=== PATIENT | female | born 1975 | race Caucasian/White ===

== ENCOUNTER 2019-08-17 08:39 | Observation (INO) ==
[2019-08-17] MEDS ORDERED: 0.9 % Sodium Chloride 1,000 ML IVC ONE (09:33)
[2019-08-17] MEDS ORDERED: Ondansetron 4 MG/2 ML VIAL IVP ONE (09:33)
[2019-08-17] MEDS ORDERED: Morphine Sulfate 2 MG/ML SYRINGE IVP ONE (09:34)
[2019-08-17 10:21] LABS: Basophils % 0.3 %; Hematocrit 39.8 % (35.3-44.9); Hemoglobin 13.6 g/dL (11.5-15.4); Immature Granulocytes % 0.4 % (0-4); Lymphocytes # 0.8 K/mcL (0.6-4.6); Lymphocytes % 5.8 %; Mean Corpuscular HGB Conc 34.2 g/dL (31.6-35.5); Mean Corpuscular Hemoglobin 30.9 pg (28.0-33.3); Mean Corpuscular Volume 90.5 fL (83.0-100.0); Mean Platelet Volume 9.2 fL (9.4-12.4); Monocytes # 0.4 K/mcL (0.0-1.3); Monocytes % 3.1 %; Neutrophils # 11.9 K/mcL (1.6-8.9); Platelet Count 268 K/mcL (140-400); Red Cell Distribution Width 13.2 % (11.5-14.5); Segmented Neutrophils % 90.4 %; White Blood Count 13.2 K/mcL (4.3-11.1)
[2019-08-17 10:43] LABS: Alanine Aminotransferase 10 Units/L (7-52); Albumin 4.2 g/dL (3.5-5.7); Albumin/Globulin Ratio 1.4 (1.1-2.2); Alkaline Phosphatase 67 Units/L (34-104); Aspartate Amino Transferase 10 Units/L (13-39); BUN/Creatinine Ratio 12 (6-26); Bilirubin,Total 0.5 mg/dL (0.3-1.0); Blood Urea Nitrogen 10 mg/dL (6-20); Calcium 9.3 mg/dL (8.6-10.3); Carbon Dioxide 22 mEq/L (23-29); Chloride 108 mEq/L (98-107); Glucose 129 mg/dL (70-105); Lipase 5 Units/L (11-82); Osmolality,Calculated 293 (280-300); Potassium 3.5 mEq/L (3.5-5.1); Sodium 141 mEq/L (136-145); Total Protein 7.2 g/dL (6.4-8.9); eGFR For African Americans > 60 (> 60); eGFR For Non-African Americans > 60 (> 60)
[2019-08-17] MEDS ORDERED: Isovue-370 500 ML BOTTLE IVP ONE (11:11)
[2019-08-17 11:16] LABS: Bilirubin,Urine Negative (Negative); Blood,Urine Large (Negative); Clarity,Urine Cloudy (Clear); Color,Urine Yellow (Yellow); Glucose,Urine (UA) Normal (Normal); Ketones,Urine Negative (Negative); Leukocyte Esterase,Urine Moderate (Negative); Nitrite,Urine Negative (Negative); Protein,Urine Trace mg/dL (Neg-Trace); Urobilinogen,Urine Normal (Normal)
[2019-08-17 11:19] LABS: Bacteria,Urine Moderate per hpf (None-Few); Hyaline Casts,Urine None Seen per lpf (None-Few); RBC,Urine 50-100 per hpf (0-3); Squamous Epithelial Cell,Urine Many per lpf (None-Few); WBC,Urine 30-50 per hpf (0-3)
[2019-08-17] MEDS ORDERED: *HR* HYDROmorphone (PF) 1 MG/ML SYRINGE IVP ONE (12:52)
[2019-08-17] MEDS ORDERED: Piperacillin/Tazobactam 3.375 GM in 0.9 % Sodium Chloride Mini Bag 100 ML IVPB ONE (12:53)
[2019-08-17 13:18] LABS: Bilirubin,Urine Negative (Negative); Blood,Urine Moderate (Negative); Clarity,Urine Clear (Clear); Color,Urine Yellow (Yellow); Glucose,Urine (UA) Normal (Normal); Ketones,Urine Negative (Negative); Leukocyte Esterase,Urine Negative (Negative); Nitrite,Urine Negative (Negative); Protein,Urine Negative (Neg-Trace); Specific Gravity,Urine 1.029 (1.010-1.025); Urobilinogen,Urine Normal (Normal)
[2019-08-17 13:20] LABS: Bacteria,Urine None Seen per hpf (None-Few); Hyaline Casts,Urine None Seen per lpf (None-Few); RBC,Urine 15-30 per hpf (0-3); Squamous Epithelial Cell,Urine Many per lpf (None-Few)
[2019-08-17] MEDS ORDERED: 0.9 % Sodium Chloride 1,000 ML IVC SCH ×2 (14:06→21:30)
[2019-08-17] MEDS ORDERED: *HR* Metoprolol 5 MG/5 ML VIAL IVP PRN ×2 (14:06→21:30)
[2019-08-17] MEDS ORDERED: *HR* HYDROcodone/Acet 5/325 mg TABLET PO PRN (14:06)
[2019-08-17] MEDS ORDERED: Ketorolac 30 MG/ML VIAL IVP PRN ×2 (14:06→21:30)
[2019-08-17] MEDS ORDERED: Acetaminophen 325 MG TABLET PO PRN ×2 (15:42→21:30)
[2019-08-17] MEDS ORDERED: CefOXitin 1,000 MG VIAL ONE (16:47)
[2019-08-17] MEDS ORDERED: Ondansetron 4 MG/2 ML VIAL ONE (18:11)
[2019-08-17] MEDS ORDERED: Lidocaine -MPF 1% 5 ML AMPUL ONE (18:11)
[2019-08-17] MEDS ORDERED: Dexamethasone 4 MG/ML VIAL ONE (18:11)
[2019-08-17] MEDS ORDERED: *HR* Rocuronium Bromide 50 MG/5 ML VIAL ONE (18:11)
[2019-08-17] MEDS ORDERED: *HR* Propofol 200 MG/20 ML VIAL IVP ONE (18:11)
[2019-08-17] MEDS ORDERED: *HR* Midazolam HCl 2 MG/2 ML VIAL ONE ×2 (18:11→20:06)
[2019-08-17] MEDS ORDERED: *HR* FentaNYL (PF) 100 MCG/2 ML VIAL ONE ×2 (18:11→20:09)
[2019-08-17] MEDS ORDERED: Acetaminophen IV 1,000 MG/100 ML INFUS..BTL ONE (18:24)
[2019-08-17] MEDS ORDERED: Famotidine 20 MG/2 ML VIAL ONE (18:48)
[2019-08-17] MEDS ORDERED: CefOXitin 2,000 MG VIAL ONE (19:48)
[2019-08-17] MEDS ORDERED: *HR* Phenylephrine 10 MG/ML VIAL ONE (19:48)
[2019-08-17] MEDS ORDERED: Piperacillin/Tazobactam 3.375 GM in 0.9 % Sodium Chloride Mini Bag 100 ML IVPB SCH (21:00)
[2019-08-17] MEDS ORDERED: Topiramate 100 MG TABLET PO SCH (21:30)
[2019-08-17] MEDS ORDERED: tiZANidine 4 MG TABLET PO PRN (21:30)
[2019-08-17] MEDS ORDERED: (Diclofenac Sodium 1 APPLIC) TP PRN (21:30)
[2019-08-17] MEDS: Morphine Sulfate 2 MG/ML SYRINGE IVP PRN (22:31)
[2019-08-17] MEDS: Gabapentin 300 MG CAPSULE PO SCH (22:50)
[2019-08-18] MEDS: Piperacillin/Tazobactam 3.375 GM in 0.9 % Sodium Chloride Mini Bag 100 ML IVPB SCH ×2 (05:45→14:04)
[2019-08-18] MEDS: Morphine Sulfate 2 MG/ML SYRINGE IVP PRN (06:05)
[2019-08-18] MEDS ORDERED: Levothyroxine 25 MCG TABLET PO SCH (06:30)
[2019-08-18] MEDS ORDERED: clonazePAM 0.5 MG TABLET PO SCH ×2 (09:00→18:00)
[2019-08-18] MEDS ORDERED: Ketorolac 30 MG/ML VIAL IVP ONE (09:07)
[2019-08-18] MEDS ORDERED: Acetaminophen IV 500 MG/50 ML INFUS..BTL IVPB ONE (09:07)
[2019-08-18] MEDS: *HR* HYDROcodone/Acet 5/325 mg TABLET PO PRN ×2 (09:37→14:04)
[2019-08-18] MEDS: Gabapentin 300 MG CAPSULE PO SCH ×2 (09:40→14:04)
[2019-08-18 10:55] VITALS: BP 83/50
== END 2019-08-18 15:20 | disposition home or self-care (01) ==
LOC: EMEROOARM 08:39 → CDU 13:38
PROVIDERS: ADMIT Surgery; ATTEND Surgery

== ENCOUNTER 2019-11-09 11:27 | Observation (INO) ==
[2019-11-09] MEDS ORDERED: Aspirin 325 MG TABLET PO ONE (11:40)
[2019-11-09] MEDS: Nitroglycerin 0.4 MG TAB.SUBL SL PRN ×2 (11:51→11:59)
[2019-11-09 11:57] LABS: Hemoglobin 12.5 g/dL (11.5-15.4); Mean Corpuscular HGB Conc 32.9 g/dL (31.6-35.5); Mean Corpuscular Volume 91.3 fL (83.0-100.0); Mean Platelet Volume 9.5 fL (9.4-12.4); Platelet Count 268 K/mcL (140-400); Red Blood Count 4.16 M/mcL (3.82-4.97); Red Cell Distribution Width 13.2 % (11.5-14.5); White Blood Count 6.3 K/mcL (4.3-11.1)
[2019-11-09 12:07] LABS: Prothrombin Time 10.9 Seconds (9.4-12.1)
[2019-11-09 12:18] LABS: BUN/Creatinine Ratio 10 (6-26); Blood Urea Nitrogen 8 mg/dL (6-20); Calcium 9.3 mg/dL (8.6-10.3); Carbon Dioxide 22 mEq/L (23-29); Chloride 109 mEq/L (98-107); Glucose 116 mg/dL (70-105); Osmolality,Calculated 289 (280-300); Potassium 3.6 mEq/L (3.5-5.1); Sodium 140 mEq/L (136-145); eGFR For African Americans > 60 (> 60); eGFR For Non-African Americans > 60 (> 60)
[2019-11-09 12:19] LABS: Troponin I < 0.03 ng/mL (< 0.04)
[2019-11-09 12:21] LABS: Eosinophils # 0.4 K/mcL (0.0-0.6); Lymphocytes # 2.1 K/mcL (0.6-4.6); Monocytes # 0.1 K/mcL (0.0-1.3); Neutrophils # 3.7 K/mcL (1.6-8.9); Platelet Estimate Normal (Normal); Reactive Lymphocytes Present (Not Present)
[2019-11-09] MEDS ORDERED: Acetaminophen 325 MG TABLET PO ONE (13:13)
[2019-11-09] MEDS: Gabapentin 300 MG CAPSULE PO SCH ×2 (15:54→21:14)
[2019-11-09] MEDS: clonazePAM 0.5 MG TABLET PO SCH (16:55)
[2019-11-09] MEDS: tiZANidine 4 MG TABLET PO PRN (22:18)
[2019-11-09] MEDS: Topiramate 100 MG TABLET PO SCH (22:18)
[2019-11-09] MEDS: QUEtiapine Fumarate 25 MG TABLET PO SCH (22:18)
[2019-11-09] MEDS ORDERED: Ketorolac 15 MG/ML VIAL IVP ONE (22:20)
[2019-11-10 02:37] LABS: Prothrombin Time 11.1 Seconds (9.4-12.1)
[2019-11-10 02:44] LABS: Basophils # 0.1 K/mcL (0.0-0.2); Basophils % 1.1 %; Hematocrit 35.2 % (35.3-44.9); Hemoglobin 11.5 g/dL (11.5-15.4); Immature Granulocytes % 0.1 % (0-4); Lymphocytes # 3.4 K/mcL (0.6-4.6); Lymphocytes % 46.7 %; Mean Corpuscular HGB Conc 32.7 g/dL (31.6-35.5); Mean Corpuscular Hemoglobin 30.8 pg (28.0-33.3); Mean Corpuscular Volume 94.4 fL (83.0-100.0); Mean Platelet Volume 9.8 fL (9.4-12.4); Monocytes # 0.5 K/mcL (0.0-1.3); Monocytes % 6.7 %; Neutrophils # 3.3 K/mcL (1.6-8.9); Platelet Count 253 K/mcL (140-400); Red Blood Count 3.73 M/mcL (3.82-4.97); Red Cell Distribution Width 13.2 % (11.5-14.5); Segmented Neutrophils % 45.4 %; White Blood Count 7.3 K/mcL (4.3-11.1)
[2019-11-10 02:53] LABS: Alanine Aminotransferase 10 Units/L (7-52); Albumin 3.8 g/dL (3.5-5.7); Albumin/Globulin Ratio 1.4 (1.1-2.2); Alkaline Phosphatase 62 Units/L (34-104); Aspartate Amino Transferase 11 Units/L (13-39); BUN/Creatinine Ratio 12 (6-26); Bilirubin,Total 0.2 mg/dL (0.3-1.0); Blood Urea Nitrogen 12 mg/dL (6-20); Calcium 9.2 mg/dL (8.6-10.3); Carbon Dioxide 24 mEq/L (23-29); Chloride 110 mEq/L (98-107); Globulin 2.8 g/dL (2.4-3.5); Glucose 91 mg/dL (70-105); Magnesium 2.1 mg/dL (1.6-2.6); Osmolality,Calculated 295 (280-300); Sodium 143 mEq/L (136-145); Total Protein 6.6 g/dL (6.4-8.9); eGFR For African Americans > 60 (> 60); eGFR For Non-African Americans 58 (> 60)
[2019-11-10] MEDS: Levothyroxine 25 MCG TABLET PO SCH (05:37)
[2019-11-10] MEDS ORDERED: 0.9 % Sodium Chloride 1,000 ML ONE (07:25)
[2019-11-10] MEDS ORDERED: 0.9 % Sodium Chloride 500 ML IV ONE (07:36)
[2019-11-10] MEDS: Aspirin 81 MG TAB.CHEW PO SCH ×2 (10:32→11:17)
[2019-11-10] MEDS: Gabapentin 300 MG CAPSULE PO SCH ×4 (10:33→21:37)
[2019-11-10] MEDS: clonazePAM 0.5 MG TABLET PO SCH ×3 (10:33→21:13)
[2019-11-10] MEDS: Multivit/Ca/Min/Fe/FA 1 TAB TABLET PO SCH ×2 (10:34→11:18)
[2019-11-10] MEDS ORDERED: Loratadine 10 MG TABLET PO SCH (11:30)
[2019-11-10] MEDS ORDERED: Fluticasone Propionate Nasal 50 MCG/SPRAY BOTTLE NS SCH (11:30)
[2019-11-10] MEDS ORDERED: clonazePAM 0.5 MG TABLET PO SCH (11:30)
[2019-11-10] MEDS ORDERED: lamoTRIgine 25 MG TABLET PO SCH (12:30)
[2019-11-10] MEDS: Ipratropium Neb 0.5 MG NEBULIZER IH PRN (16:39)
[2019-11-10] MEDS: *HR* Heparin 5,000 UNIT/ML VIAL SQ SCH (17:33)
[2019-11-10] MEDS: QUEtiapine Fumarate 25 MG TABLET PO SCH (21:37)
[2019-11-10] MEDS: Topiramate 100 MG TABLET PO SCH (21:39)
[2019-11-10] MEDS: tiZANidine 4 MG TABLET PO PRN (21:49)
[2019-11-11 03:55] LABS: Chol/HDL Ratio 5.2 (0-4.9); Cholesterol 166 mg/dL (< 200); HDL Cholesterol 32 mg/dL (40-59); LDL Cholesterol,Calculated 81 mg/dL (0-99); Triglycerides 266 mg/dL (< 150)
[2019-11-11] MEDS: *HR* Heparin 5,000 UNIT/ML VIAL SQ SCH (05:44)
[2019-11-11] MEDS: Levothyroxine 25 MCG TABLET PO SCH (05:45)
[2019-11-11] MEDS ORDERED: Regadenoson 0.4 MG/5 ML SYRINGE IVP ONE (08:51)
[2019-11-11] MEDS: Ipratropium Neb 0.5 MG NEBULIZER IH PRN (10:46)
[2019-11-11 12:02] VITALS: BP 92/62
[2019-11-15] MEDS ORDERED: Cholecalciferol (D-3) 1,000 UNIT (25MCG) TABLET PO SCH (15:00)
== END 2019-11-11 14:07 | disposition home or self-care (01) ==
LOC: EMEROOARM 11:27 → 3BNU 11:27 → SUATTDRO 14:55
PROVIDERS: ADMIT Family Medicine; ATTEND Internal Medicine

== ENCOUNTER 2022-02-19 01:55 | Inpatient (IN) ==
[2022-02-19] MEDS ORDERED: 0.9 % Sodium Chloride 1,000 ML ONE ×2 (02:13→02:14)
[2022-02-19] MEDS ORDERED: Ketamine HCL *QUVA* 50mg (1mL) SYRINGE ONE (02:18)
[2022-02-19] MEDS ORDERED: *HR* Rocuronium Bromide 50 MG/5 ML VIAL IVP ONE (02:30)
[2022-02-19] MEDS ORDERED: Ketamine HCL *QUVA* 50mg (1mL) SYRINGE IV ONE (02:31)
[2022-02-19] MEDS ORDERED: 0.9 % Sodium Chloride 1,000 ML IVC ONE (02:42)
[2022-02-19 02:55] LABS: ABG Base Excess -6 mEq/L (-2 to 3); ABG HCO3 19 mEq/L (21-27); ABG Oxygen Saturation 100 % (95-98); ABG PCO2 34 mmHg (35-45); ABG PH 7.35 pH Units (7.32-7.45); ABG PO2 185 mmHg (85-104); ABG TCO2 20 mEq/L (20-26); Blood Gas Modality ASSIST CONTROL; Blood Gas VT 500 cc
[2022-02-19 03:08] LABS: Bilirubin,Urine Negative (Negative); Blood,Urine Negative (Negative); Clarity,Urine Clear (Clear); Color,Urine Colorless (Yellow); Glucose,Urine (UA) Normal (Normal); Ketones,Urine Negative (Negative); Leukocyte Esterase,Urine Negative (Negative); Nitrite,Urine Negative (Negative); PH,Urine 6.5 pH Units (5.0-8.0); Protein,Urine Negative (Neg-Trace); Specific Gravity,Urine < 1.005 (1.010-1.025); Urobilinogen,Urine Normal (Normal)
[2022-02-19 03:18] LABS: Amphetamine Screen,Urine Negative ng/mL (Cutoff=1000); Barbiturate Screen,Urine Negative ng/mL (Cutoff=200); Benzodiazepines Screen,Urine Negative ng/mL (Cutoff=200); Cannabinoid Screen,Urine Negative ng/mL (Cutoff = 50); Cocaine Screen,Urine Negative ng/mL (Cutoff= 300); Opiate Screen,Urine Negative ng/mL (Cutoff=300); Phencyclidine Screen,Urine Negative ng/mL (Cutoff=25)
[2022-02-19 03:43] LABS: Basophils # 0.1 K/mcL (0.0-0.2); Basophils % 1.3 %; Hematocrit 45.4 % (35.3-44.9); Hemoglobin 15.1 g/dL (11.5-15.4); Immature Granulocytes % 0.3 % (0-4); Lymphocytes # 2.8 K/mcL (0.6-4.6); Lymphocytes % 29.9 %; Mean Corpuscular HGB Conc 33.3 g/dL (31.6-35.5); Mean Corpuscular Hemoglobin 32.1 pg (28.0-33.3); Mean Corpuscular Volume 96.4 fL (83.0-100.0); Mean Platelet Volume 9.5 fL (9.4-12.4); Monocytes # 0.5 K/mcL (0.0-1.3); Neutrophils # 5.9 K/mcL (1.6-8.9); Platelet Count 258 K/mcL (140-400); Red Blood Count 4.71 M/mcL (3.82-4.97); Red Cell Distribution Width 13.6 % (11.5-14.5); Segmented Neutrophils % 63.5 %; White Blood Count 9.4 K/mcL (4.3-11.1)
[2022-02-19 03:52] LABS: Prothrombin Time 10.7 Seconds (9.4-12.1)
[2022-02-19 03:53] LABS: Acetaminophen < 10 mcg/mL (10-20); Alanine Aminotransferase 10 Units/L (7-52); Albumin 3.9 g/dL (3.5-5.7); Albumin/Globulin Ratio 1.3 (1.1-2.2); Alkaline Phosphatase 70 Units/L (34-104); Aspartate Amino Transferase 14 Units/L (13-39); BUN/Creatinine Ratio 9 (6-26); Bilirubin,Indirect 0.3 mg/dL (0.0-1.0); Bilirubin,Total 0.3 mg/dL (0.3-1.0); Blood Urea Nitrogen 6 mg/dL (6-20); Calcium 8.7 mg/dL (8.6-10.3); Carbon Dioxide 23 mEq/L (23-29); Chloride 106 mEq/L (98-107); Ethanol 168 mg/dL (Less than 10); Glucose 70 mg/dL (70-105); Osmolality,Calculated 284 (280-300); Potassium 3.4 mEq/L (3.5-5.1); Salicylate < 2.5 mg/dL (15.0-30.0); Sodium 139 mEq/L (136-145); Total Protein 6.9 g/dL (6.4-8.9); eGFR For African Americans > 60 (> 60); eGFR For Non-African Americans > 60 (> 60)
[2022-02-19 03:55] LABS: Activated Partial Thrombo Time 35.8 Seconds (26.0-36.0)
[2022-02-19] MEDS ORDERED: Naloxone 0.4 MG/ML INJ IVP PRN (04:13)
[2022-02-19] MEDS ORDERED: Ondansetron 4 MG/2 ML VIAL IVP PRN (04:16)
[2022-02-19] MEDS ORDERED: Dextrose Gel 15 GM/37.5 ML TUBE PO PRN ×2 (04:18)
[2022-02-19] MEDS ORDERED: D5% in Water 1,000 ML IVC PRN (04:18)
[2022-02-19] MEDS ORDERED: Saline Nasal Spray 44 ML BOTTLE NS PRN (04:22)
[2022-02-19 04:51] LABS: Basophils # 0.1 K/mcL (0.0-0.2); Basophils % 1.1 %; Hematocrit 41.6 % (35.3-44.9); Hemoglobin 13.6 g/dL (11.5-15.4); Immature Granulocytes % 0.2 % (0-4); Lymphocytes # 2.5 K/mcL (0.6-4.6); Lymphocytes % 31.3 %; Mean Corpuscular HGB Conc 32.7 g/dL (31.6-35.5); Mean Corpuscular Hemoglobin 31.6 pg (28.0-33.3); Mean Corpuscular Volume 96.5 fL (83.0-100.0); Mean Platelet Volume 9.3 fL (9.4-12.4); Monocytes # 0.5 K/mcL (0.0-1.3); Monocytes % 6.4 %; Neutrophils # 4.9 K/mcL (1.6-8.9); Platelet Count 228 K/mcL (140-400); Red Blood Count 4.31 M/mcL (3.82-4.97); Red Cell Distribution Width 13.7 % (11.5-14.5)
[2022-02-19 04:58] LABS: Prothrombin Time 11.1 Seconds (9.4-12.1)
[2022-02-19 05:00] LABS: Activated Partial Thrombo Time 36.5 Seconds (26.0-36.0)
[2022-02-19 05:11] LABS: Alanine Aminotransferase 8 Units/L (7-52); Albumin 3.4 g/dL (3.5-5.7); Albumin/Globulin Ratio 1.4 (1.1-2.2); Alkaline Phosphatase 59 Units/L (34-104); Aspartate Amino Transferase 12 Units/L (13-39); BUN/Creatinine Ratio 9 (6-26); Bilirubin,Total 0.2 mg/dL (0.3-1.0); Blood Urea Nitrogen 6 mg/dL (6-20); Calcium 7.6 mg/dL (8.6-10.3); Carbon Dioxide 21 mEq/L (23-29); Chloride 111 mEq/L (98-107); Creatine Kinase 21 Units/L (30-223); Globulin 2.5 g/dL (2.4-3.5); Glucose 76 mg/dL (70-105); Magnesium 1.9 mg/dL (1.6-2.6); Osmolality,Calculated 288 (280-300); Phosphorous 2.3 mg/dL (2.7-4.5); Potassium 3.3 mEq/L (3.5-5.1); Sodium 141 mEq/L (136-145); Total Protein 5.9 g/dL (6.4-8.9); eGFR For African Americans > 60 (> 60); eGFR For Non-African Americans > 60 (> 60)
[2022-02-19] MEDS ORDERED: Thiamine (B-1) 100 MG in 0.9 % Sodium Chloride 50 ML IVPB STA (05:27)
[2022-02-19] MEDS ORDERED: *HR* LORazepam 2 MG/ML VIAL IVP PRN ×3 (05:48)
[2022-02-19] MEDS ORDERED: 0.9 % Sodium Chloride 1,000 ML IVC SCH (06:00)
[2022-02-19] MEDS: Calcium Gluconate 1gm/50mL 1 GM/50 ML BAG IVPB SCH ×2 (06:03→06:22)
[2022-02-19] MEDS: *HR* Enoxaparin 40 MG/0.4 ML SYRINGE SQ SCH (06:05)
[2022-02-19 06:26] LABS: ABG Base Excess -7 mEq/L (-2 to 3); ABG HCO3 16 mEq/L (21-27); ABG Oxygen Saturation 98 % (95-98); ABG PCO2 27 mmHg (35-45); ABG PH 7.38 pH Units (7.32-7.45); ABG PO2 108 mmHg (85-104); ABG TCO2 17 mEq/L (20-26); Blood Gas VT 500 cc
[2022-02-19] MEDS: Pantoprazole 40 MG VIAL IVP SCH (07:43)
[2022-02-19] MEDS: Chlorhexidine Rinse 15 ML MOUTHWASH MM SCH ×2 (07:43→20:06)
[2022-02-19] MEDS: Artificial Tears SOLN 15 ML BOTTLE BOTH EYES SCH ×5 (07:43→23:10)
[2022-02-19] MEDS: *HR* Dextrose 50 % in Water (Syg) 50 ML SYRINGE IVP PRN ×3 (07:44→13:58)
[2022-02-19] MEDS ORDERED: Nicotine 14 MG PATCH.TD24 TD SCH (09:00)
[2022-02-19] MEDS ORDERED: Artificial Tears SOLN 15 ML BOTTLE BOTH EYES SCH (09:00)
[2022-02-19] MEDS: Budesonide/Formoterol 160/4.5 1 PUFF INH IH SCH ×2 (10:15→20:30)
[2022-02-19] MEDS: Ipratropium/Albuterol Neb 3 ML IH SCH ×3 (10:15→20:30)
[2022-02-19] MEDS ORDERED: D5% in 0.9% NACL 1,000 ML IVC SCH (11:45)
[2022-02-19] MEDS: D10% in Water 500 ML IVC SCH ×2 (15:01→20:00)
[2022-02-19 16:50] LABS: VBG Ionized Calcium 1.14 mmol/L (1.15-1.35)
[2022-02-19 17:11] LABS: BUN/Creatinine Ratio 9 (6-26); Blood Urea Nitrogen 6 mg/dL (6-20); Calcium 8.6 mg/dL (8.6-10.3); Carbon Dioxide 25 mEq/L (23-29); Chloride 110 mEq/L (98-107); Glucose 116 mg/dL (70-105); Magnesium 1.9 mg/dL (1.6-2.6); Osmolality,Calculated 291 (280-300); Phosphorous 3.3 mg/dL (2.7-4.5); Potassium 3.6 mEq/L (3.5-5.1); Sodium 141 mEq/L (136-145); eGFR For African Americans > 60 (> 60); eGFR For Non-African Americans > 60 (> 60)
[2022-02-19 17:32] LABS: Thyroid Stimulating Hormone 1.427 mcIU/mL (0.340-5.600)
[2022-02-19] MEDS ORDERED: Thiamine (B-1) 100 MG, Folic Acid 1 MG, MVI, adult with vitamin K 10 ML in 0.9 % Sodi... IVPB SCH (18:00)
[2022-02-19] MEDS ORDERED: Dexmedetomidine HCl 400 MCG/100 ML MLS IVC SCH (19:00)
[2022-02-20] MEDS: D10% in Water 500 ML IVC SCH ×2 (00:08→18:42)
[2022-02-20] MEDS: Ipratropium/Albuterol Neb 3 ML IH SCH ×3 (03:48→16:11)
[2022-02-20 04:01] LABS: ABG Base Excess -3 mEq/L (-2 to 3); ABG HCO3 20 mEq/L (21-27); ABG Oxygen Saturation 99 % (95-98); ABG PCO2 29 mmHg (35-45); ABG PH 7.45 pH Units (7.32-7.45); ABG PO2 119 mmHg (85-104); ABG TCO2 21 mEq/L (20-26); Blood Gas VT 500 cc
[2022-02-20] MEDS: Artificial Tears SOLN 15 ML BOTTLE BOTH EYES SCH ×3 (04:01→11:38)
[2022-02-20] MEDS: *HR* Enoxaparin 40 MG/0.4 ML SYRINGE SQ SCH (05:12)
[2022-02-20 06:49] LABS: VBG Ionized Calcium 1.11 mmol/L (1.15-1.35)
[2022-02-20 07:05] LABS: Basophils # 0.1 K/mcL (0.0-0.2); Basophils % 0.8 %; Eosinophils # 1.2 K/mcL (0.0-0.6); Eosinophils % 13.8 %; Hematocrit 36.7 % (35.3-44.9); Hemoglobin 11.6 g/dL (11.5-15.4); Immature Granulocytes % 0.2 % (0-4); Lymphocytes # 1.5 K/mcL (0.6-4.6); Lymphocytes % 17.8 %; Mean Corpuscular HGB Conc 31.6 g/dL (31.6-35.5); Mean Corpuscular Hemoglobin 32.2 pg (28.0-33.3); Mean Corpuscular Volume 101.9 fL (83.0-100.0); Mean Platelet Volume 9.8 fL (9.4-12.4); Monocytes # 0.7 K/mcL (0.0-1.3); Monocytes % 7.6 %; Neutrophils # 5.1 K/mcL (1.6-8.9); Platelet Count 209 K/mcL (140-400); Red Cell Distribution Width 14.3 % (11.5-14.5); Segmented Neutrophils % 59.8 %; White Blood Count 8.6 K/mcL (4.3-11.1)
[2022-02-20] MEDS: Chlorhexidine Rinse 15 ML MOUTHWASH MM SCH (07:38)
[2022-02-20] MEDS: Pantoprazole 40 MG VIAL IVP SCH (07:38)
[2022-02-20 09:33] LABS: BUN/Creatinine Ratio 9 (6-26); Blood Urea Nitrogen 6 mg/dL (6-20); Calcium 8.3 mg/dL (8.6-10.3); Carbon Dioxide 20 mEq/L (23-29); Chloride 113 mEq/L (98-107); Glucose 124 mg/dL (70-105); Osmolality,Calculated 287 (280-300); Phosphorous 3.9 mg/dL (2.7-4.5); Potassium 3.9 mEq/L (3.5-5.1); Sodium 139 mEq/L (136-145); eGFR For African Americans > 60 (> 60); eGFR For Non-African Americans > 60 (> 60)
[2022-02-20] MEDS: Budesonide/Formoterol 160/4.5 1 PUFF INH IH SCH ×2 (10:04→20:22)
[2022-02-20] MEDS: Nicotine 14 MG PATCH.TD24 TD SCH (11:40)
[2022-02-20] MEDS ORDERED: Methyl Salicylate/Menthol 85 APPL/85 GM TUBE TP PRN (16:09)
[2022-02-20] MEDS: Folic Acid 1 MG TABLET PO SCH (17:05)
[2022-02-20] MEDS: Acetaminophen 325 MG TABLET PO PRN (20:06)
[2022-02-20] MEDS: Topiramate 100 MG TABLET PO SCH (21:44)
[2022-02-20] MEDS: Topiramate 25 MG TABLET PO SCH (21:44)
[2022-02-20] MEDS ORDERED: Melatonin 3 MG TABLET PO PRN (23:10)
[2022-02-21] MEDS: Ipratropium Neb 0.5 MG NEBULIZER IH PRN ×3 (01:00→15:20)
[2022-02-21 01:30] LABS: VBG Ionized Calcium 0.97 mmol/L (1.15-1.35)
[2022-02-21 01:50] LABS: BUN/Creatinine Ratio 13 (6-26); Blood Urea Nitrogen 11 mg/dL (6-20); Calcium 8.7 mg/dL (8.6-10.3); Carbon Dioxide 20 mEq/L (23-29); Chloride 112 mEq/L (98-107); Glucose 132 mg/dL (70-105); Osmolality,Calculated 293 (280-300); Phosphorous 3.3 mg/dL (2.7-4.5); Potassium 3.3 mEq/L (3.5-5.1); Sodium 141 mEq/L (136-145); eGFR For African Americans > 60 (> 60); eGFR For Non-African Americans > 60 (> 60)
[2022-02-21] MEDS: Acetaminophen 325 MG TABLET PO PRN ×3 (03:14→20:36)
[2022-02-21] MEDS: *HR* Enoxaparin 40 MG/0.4 ML SYRINGE SQ SCH (05:12)
[2022-02-21] MEDS: Budesonide/Formoterol 160/4.5 1 PUFF INH IH SCH ×3 (07:28→20:38)
[2022-02-21] MEDS: Folic Acid 1 MG TABLET PO SCH (07:49)
[2022-02-21] MEDS: Thiamine (B-1) 100 MG TABLET PO SCH (07:49)
[2022-02-21] MEDS: Nicotine 14 MG PATCH.TD24 TD SCH (07:49)
[2022-02-21 11:48] LABS: Influenza A PCR Negative (Negative); Influenza B PCR Negative (Negative); Resp. Syncytial Virus PCR Negative (Negative)
[2022-02-21 11:49] LABS: SARS-CoV-2 by PCR (In House) Negative (Negative)
[2022-02-21] MEDS: Ipratropium/Albuterol Neb 3 ML IH SCH (20:33)
[2022-02-21] MEDS: Topiramate 100 MG TABLET PO SCH (20:36)
[2022-02-21] MEDS: Topiramate 25 MG TABLET PO SCH (20:36)
[2022-02-22] MEDS: Menthol 1 EACH LOZENGE PO PRN ×2 (00:46→03:53)
[2022-02-22 02:20] LABS: VBG Ionized Calcium 1.13 mmol/L (1.15-1.35)
[2022-02-22 02:35] LABS: BUN/Creatinine Ratio 17 (6-26); Blood Urea Nitrogen 14 mg/dL (6-20); Carbon Dioxide 22 mEq/L (23-29); Chloride 107 mEq/L (98-107); Glucose 98 mg/dL (70-105); Magnesium 1.9 mg/dL (1.6-2.6); Osmolality,Calculated 282 (280-300); Phosphorous 4.3 mg/dL (2.7-4.5); Sodium 136 mEq/L (136-145); eGFR For African Americans > 60 (> 60); eGFR For Non-African Americans > 60 (> 60)
[2022-02-22] MEDS: Ipratropium/Albuterol Neb 3 ML IH SCH ×2 (04:11→10:04)
[2022-02-22] MEDS: *HR* Enoxaparin 40 MG/0.4 ML SYRINGE SQ SCH (05:48)
[2022-02-22] MEDS: Nicotine 14 MG PATCH.TD24 TD SCH (09:07)
[2022-02-22] MEDS: Folic Acid 1 MG TABLET PO SCH (09:08)
[2022-02-22] MEDS: Thiamine (B-1) 100 MG TABLET PO SCH (09:08)
[2022-02-22] MEDS: Budesonide/Formoterol 160/4.5 1 PUFF INH IH SCH (10:01)
[2022-02-22 10:05] VITALS: O2SAT 95
[2022-02-22 11:57] VITALS: BP 93/57; PULSE 89; TEMP 98.9
== END 2022-02-22 12:46 | DRG 817 ==
LOC: ICNU 01:55 → EMEROOARM 01:55 → SUATTDRO 04:21 → ICNU 04:55 → 3BNU 02-20 18:41
PROVIDERS: ADMIT Internal Medicine; ATTEND Registered Nurse

== ENCOUNTER 2022-02-22 12:56 | Inpatient (IN) ==
[2022-02-22] MEDS ORDERED: *HR* LORazepam 2 MG/ML VIAL IM PRN (15:26)
[2022-02-22] MEDS ORDERED: Haloperidol Lactate 5 MG/ML VIAL IM PRN (15:26)
[2022-02-22] MEDS ORDERED: traZODone 50 MG TABLET PO PRN ×2 (15:26→15:30)
[2022-02-22] MEDS ORDERED: *HR* LORazepam 1 MG TABLET PO PRN (15:26)
[2022-02-22] MEDS ORDERED: haloperidoL 5 MG TABLET PO PRN (15:26)
[2022-02-22] MEDS: Ipratropium Neb 0.5 MG NEBULIZER IH PRN (18:02)
[2022-02-22] MEDS: Topiramate 100 MG TABLET PO SCH (20:28)
[2022-02-22] MEDS: QUEtiapine Fumarate 25 MG TABLET PO SCH (20:29)
[2022-02-22] MEDS: Acetaminophen 325 MG TABLET PO PRN (20:29)
[2022-02-22] MEDS: traZODone 50 MG TABLET PO SCH (20:30)
[2022-02-22] MEDS ORDERED: clonazePAM 0.5 MG TABLET PO ONE (21:00)
[2022-02-23] MEDS: Vitamin B Complex/Vit C/Vit E 1 EACH TABLET PO SCH (10:30)
[2022-02-23 18:00] LABS: Bacteria,Urine Few per hpf (None-Few); Bilirubin,Urine Negative (Negative); Blood,Urine Large (Negative); Budding Yeast,Urine Few per hpf (None Seen); Clarity,Urine Ex.Turbid (Clear); Color,Urine Dark-Yellow (Yellow); Glucose,Urine (UA) Normal (Normal); Ketones,Urine Negative (Negative); Leukocyte Esterase,Urine Large (Negative); Mucus,Urine Few per lpf (None-Few); Nitrite,Urine Negative (Negative); Protein,Urine 100 mg/dL (Neg-Trace); RBC,Urine TNTC per hpf (0-3); Renal Epithelial Cells,Urine Few per hpf (None-Few); Specific Gravity,Urine 1.019 (1.010-1.025); Squamous Epithelial Cell,Urine Moderate per hpf (None-Few); Transitional Epi Cells,Urine Few per hpf (None-Few); Urobilinogen,Urine Normal (Normal); WBC,Urine TNTC per hpf (0-3)
[2022-02-23] MEDS: Nitrofurantoin (BID) 100 MG CAPSULE PO SCH ×2 (21:38→23:25)
[2022-02-23] MEDS: Nicotine 14 MG PATCH.TD24 TD SCH (21:39)
[2022-02-23] MEDS: QUEtiapine Fumarate 25 MG TABLET PO SCH (21:40)
[2022-02-23] MEDS: traZODone 50 MG TABLET PO SCH (21:40)
[2022-02-23] MEDS: Topiramate 100 MG TABLET PO SCH (21:40)
[2022-02-23] MEDS: Acetaminophen 325 MG TABLET PO PRN (21:42)
[2022-02-23] MEDS: Ipratropium Neb 0.5 MG NEBULIZER IH PRN (21:44)
[2022-02-23 23:49] VITALS: O2SAT 97
[2022-02-24] MEDS: Vitamin B Complex/Vit C/Vit E 1 EACH TABLET PO SCH (09:06)
[2022-02-24] MEDS: Nicotine 14 MG PATCH.TD24 TD SCH (09:06)
[2022-02-24] MEDS: Nitrofurantoin (BID) 100 MG CAPSULE PO SCH (09:06)
[2022-02-24 09:44] VITALS: BP 102/72; PULSE 80; TEMP 97.8
[2022-02-24] MEDS: Ipratropium Neb 0.5 MG NEBULIZER IH PRN (10:03)
[2022-02-24] MEDS ORDERED: Ergocalciferol (VIT D2) 50,000 UNIT (1.25MG) CAP PO SCH (15:30)
== END 2022-02-24 15:12 | disposition home or self-care (01) | DRG 753 ==
LOC: 1ANU 12:56
PROVIDERS: ADMIT Psychiatry & Neurology Forensic Psychiatry; ATTEND Psychiatry & Neurology Forensic Psychiatry